=== PATIENT | male | born 1950 | race Hispanic/Latino ===

== ENCOUNTER 2017-10-26 14:23 | Outpatient (CLI) | payer OTHER ==
[~2017-10-26 14:23] MED LIST: Gadobenate Dimeglumine 529 MG/1 ML (20ML VIAL) ONE
[2017-10-26 15:25] LABS: Estimated GFR-MDRD - POC Greater than 90
--- NOTE | 2017-10-28 08:55 | MRI ---
MRI PELVIS/PROSTATE WITHOUT AND WITH CONTRAST: History: Elevated PSA. Prostate cancer screening. Technique: Multiplanar, multisequence MRI images were obtained of the prostate without and with IV co ntrast. Contrast enhancement curves were generated on a [employer] workstation. FINDINGS: There is moderate hypertrophy of the central gland consistent with BPH. No suspicious lesion is seen within the central gland or within the peripheral zone of the prostate. No restricted diffusion is se en and no low signal is seen on the ADC map within the peripheral zone of the prostate. Seminal vesicles are unremarkable. There is scattered diverticula in the colon. No pelvic adenopathy is seen. No marrow signal abnormality is present. IMPRESSION: PIRADS category 1 - very low likelihood that a clinically significant cancer is present. POS: IAN
== END 2017-10-26 14:24 | disposition home or self-care (01) ==
LOC: TBSIIMAG 14:23
PROVIDERS: ATTEND Urology
DX: R97.20 Elevated prostate specific antigen [PSA] (principal); N40.0 Benign prostatic hyperplasia without lower urinary tract symptoms; N39.41 Urge incontinence
CPT/HCPCS: 72197; 82565; A9579

== ENCOUNTER 2020-06-05 13:12 | Outpatient (CLI) | payer OTHER | END 2020-06-05 13:13 | disposition home or self-care (01) | LOC: BICMRI 13:12 | PROVIDERS: ATTEND Family Medicine | DX: M25.511 Pain in right shoulder (principal); M75.121 Complete rotator cuff tear or rupture of right shoulder, not specified as traumatic; M62.511 Muscle wasting and atrophy, not elsewhere classified, right shoulder; M25.411 Effusion, right shoulder ==

== ENCOUNTER 2023-06-14 12:56 | Outpatient (CLI) | payer BC | END 2023-06-14 12:57 | disposition home or self-care (01) | LOC: ULT 12:56 | PROVIDERS: ATTEND Urology | DX: N28.9 Disorder of kidney and ureter, unspecified (principal); N28.89 Other specified disorders of kidney and ureter | CPT/HCPCS: 76770 ==